=== PATIENT | male | born 2005 | race Two or more races ===

== ENCOUNTER 2023-11-01 13:27 | Emergency (ER) | payer BC, OTHER ==
[2023-11-01] MEDS ORDERED: DIPHTH,PERTUSS(ACELL),TET 0.5 ML DISP.SYRIN IM ONE (13:43)
[2023-11-01] MEDS ORDERED: IBUPROFEN 600 MG TABLET (FP) PO ONE (13:43)
[2023-11-01 13:46] VITALS: RESP 18; BMI 19.0
[2023-11-01] MEDS: DIPHTH,PERTUSS(ACELL),TET 0.5 ML DISP.SYRIN IM ONE (13:55)
[2023-11-01] MEDS: IBUPROFEN 600 MG TABLET (FP) PO ONE (13:55)
[2023-11-01 13:59] VITALS: BP 125/83; PULSE 66; TEMP 98.8
[2023-11-01] MEDS ORDERED: LIDOCAINE HCL 2% (20ML MULTI-DOSE VIAL) ONE (14:48)
[2023-11-01] MEDS: LIDOCAINE HCL 2% (50ML VIAL) INF ONE (15:00)
== END 2023-11-01 14:10 ==
LOC: FER 13:27
PROC: 2W3CX1Z Immobilization of Right Lower Arm using Splint (ICD-10-PCS; principal; 2023-11-01)
PROC: 3E0234Z Introduction of Serum, Toxoid and Vaccine into Muscle, Percutaneous Approach (ICD-10-PCS; 2023-11-01)
DX: S62.316A Displaced fracture of base of fifth metacarpal bone, right hand, initial encounter for closed fracture (principal); W22.8XXA Striking against or struck by other objects, initial encounter
CPT/HCPCS: 73130-TC-RT-FY; 90715; 99284-25